=== PATIENT | female | born 1985 | race Caucasian/White ===

== ENCOUNTER 2019-04-09 18:49 | Emergency (ER) | payer OTHER ==
[2019-04-09] MEDS: ONDANSETRON (ODT) 4 MG TAB ODT (20:34)
[2019-04-09] MEDS: METHYLPREDNISOLONE 125 MG INJ IM (20:34)
[2019-04-09] MEDS: FAMOTIDINE 20 MG TAB PO (20:34)
== END 2019-04-09 21:02 | disposition home or self-care (01) ==
LOC: FTE 18:49
DX: L50.0 Allergic urticaria (principal)
CPT/HCPCS: 96372; 99284-25